=== PATIENT | female | born 1970 | race Caucasian/White ===

== ENCOUNTER 2018-04-12 21:01 | Emergency (ER) | payer MEDICAID ==
[~2018-04-12] VITALS: Ht 160 cm; Wt 77.1 kg
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
[2018-04-12] MEDS ORDERED: ACETAMINOPHEN ES 500 MG TABLET ONE (21:53)
[2018-04-12] MEDS ORDERED: ACETAMINOPHEN 325 MG TABLET PO ONE (22:00)
--- NOTE | 2018-04-12 22:09 | NUR ---
XRAY AT BEDSIDE
--- NOTE | 2018-04-12 23:32 | NUR ---
Patient discharged to home in stable condition. Written and verbal after care instructions given. Patient verbalizes understanding of instruction. ambulatory with a steady gait
[2018-04-12 23:33] VITALS: BP 105/69
== END 2018-04-12 23:33 | disposition home or self-care (01) ==
LOC: ER 21:02
DX: S90.02XA Contusion of left ankle, initial encounter (principal); S90.32XA Contusion of left foot, initial encounter; V43.62XA Car passenger injured in collision with other type car in traffic accident, initial encounter; Y93.89 Activity, other specified; Y92.89 Other specified places as the place of occurrence of the external cause; Y99.8 Other external cause status
CPT/HCPCS: 73590-TC; 73600-TC; 73620-TC; A4606; Z7610

== ENCOUNTER 2019-04-16 21:28 | Emergency (ER) | payer MEDICAID ==
[~2019-04-16] VITALS: Ht 162.6 cm; Wt 82.6 kg
[2019-04-16] MEDS ORDERED: ONDANSETRON HCL/PF 4 MG/2 ML VIAL ONE (22:23)
[2019-04-16] MEDS: IV NS 0.9% 1,000 ML BAG IV ONE (22:45)
[2019-04-16 22:47] LABS: BASOPHILS # (AUTO) 0.1 /CMM (0.0-0.2); BASOPHILS % (AUTO) 0.6 % (0.0-2.0); EOSINOPHILS % (AUTO) 0.3 % (0.0-6.0); HEMATOCRIT 39 % (33-45); LYMPHOCYTES % (AUTO) 16.5 % (20.0-44.0); MEAN CORPUSCULAR HGB CONC 33 g/dl (31.0-36.0); MEAN CORPUSCULAR VOLUME 82 fL (82-100); MONOCYTES # (AUTO) 0.8 /CMM (0.1-1.30); MONOCYTES % (AUTO) 6.4 % (2.0-12.0); NEUTROPHILS # (AUTO) 9.4 /CMM (1.8-8.9); NEUTROPHILS % (AUTO) 76.2 % (43.0-81.0); PLATELET COUNT (AUTO) 303 /CMM (150-450); WHITE BLOOD COUNT (AUTO) 12.4 K/uL (4.3-11.0)
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
[2019-04-16 22:56] LABS: CALCIUM, SERUM 8.9 mg/dL (8.5-10.1); CARBON DIOXIDE 27 mmol/L (21-32); CHLORIDE 105 mmol/L (98-107); CREATININE 0.7 mg/dL (0.6-1.3); GLUCOSE 90 mg/dL (74-106); POTASSIUM 3.8 mmol/L (3.5-5.1); SODIUM SERUM 141 mmol/L (136-145); UREA NITROGEN, BLOOD 12 mg/dL (7-18)
[2019-04-16 23:00] LABS: IRON, SERUM 44 ug/dl (50-175); TOTAL IRON BINDING CAPACITY 282 ug/dl (250-450)
--- NOTE | 2019-04-16 23:00 | NUR ---
PT IN RADIOLOGY ON MEERA
[2019-04-16 23:02] LABS: ALANINE AMINOTRANSFERASE 16 U/L (12-78); ALBUMIN 3.6 g/dL (3.4-5.0); ALKALINE PHOSPHATASE 66 U/L (46-116); ASPARTATE AMINOTRANSFERASE 16 U/L (15-37); BILIRUBIN,DIRECT 0.1 mg/dL (0.0-0.2); BILIRUBIN,TOTAL 0.2 mg/dL (0.2-1.0); TOTAL PROTEIN, SERUM 7.3 g/dL (6.4-8.2)
--- NOTE | 2019-04-17 01:05 | NUR ---
MD MADE AWARE OF POSTURAL BP RESULT
--- NOTE | 2019-04-17 01:31 | NUR ---
LAB AT BEDSIDE FOR REPEAT TROPONIN
[2019-04-17] MEDS: ONDANSETRON HCL/PF 4 MG/2 ML VIAL IVP ONE (02:53)
--- NOTE | 2019-04-17 02:54 | NUR ---
IV removed. Catheter intact and site benign. Pressure and 4x4 applied to site. No bleeding noted.Patient discharged to home in stable condition. Written and verbal after care instructions given. Patient verbalizes understanding of instruction. Pt ambulatory with a steady gait
[2019-04-17 02:55] VITALS: BP 117/72
== END 2019-04-17 02:56 | disposition home or self-care (01) ==
LOC: ER 21:28
DX: S93.491A Sprain of other ligament of right ankle, initial encounter (principal); R42 Dizziness and giddiness; R55 Syncope and collapse; R07.89 Other chest pain; F10.10 Alcohol abuse, uncomplicated; Y90.9 Presence of alcohol in blood, level not specified; X58.XXXA Exposure to other specified factors, initial encounter; Y93.89 Activity, other specified; Y92.89 Other specified places as the place of occurrence of the external cause; Y99.8 Other external cause status
CPT/HCPCS: 36415 ×2; 70450; 71045; 73610; 80048; 80076; 83540; 84484 ×2; 84702; 85025; 85730; 93005; 96360; 99284; J7030; J2405